=== PATIENT | female | born 1985 | race Caucasian/White ===

== ENCOUNTER 2017-03-29 09:51 | Emergency (ER) | payer MEDICAID, OTHER ==
[~2017-03-29] VITALS: Ht 160 cm; Wt 55.0 kg
[~2017-03-29 09:51] MED LIST: DICL50 PO; ROBA750T3 PO; TRAM50 PO
[2017-03-29 09:54] VITALS: BP 117/87; PULSE 85; RESP 18; TEMP 98.1; O2SAT 99
--- NOTE | 2017-03-29 09:57 | PD ---
Physical Exam Time Seen by Provider: 09:56 Narrative 31yo F c/o of something in her left eye last night. Reports eye pain and burning. Denies change in vision. Patient seen in triage. VS reviewed. Awaiting bed placement. Data Data Last Documented VS Vital Signs Date Time Temp Pulse Resp B/P Pulse Ox O2 Delivery O2 Flow Rate FiO2 03/29/17 09:54 98.1 85 18 117/87 99 Room Air MDM Supervised Visit with ZOILA: Clari Palomo Mar 29, 2017 09:57
[2017-03-29] MEDS ORDERED: TETRACAINE 0.5% OPTH SOLN 4 ML BTL LEFT EYE ONE (10:45)
[2017-03-29] MEDS ORDERED: FLUORESCEIN SOD 1 MG STRIP LEFT EYE ONE (11:00)
[2017-03-29] MEDS ORDERED: NORC5TAB PO (11:20)
[2017-03-29] MEDS ORDERED: ERYTOIN10 LEFT EYE (11:20)
[2017-03-29] MEDS ORDERED: KETO1SOL3 LEFT EYE (11:20)
--- NOTE | 2017-03-29 11:20 | PD ---
HPI . Left eye pain Chief Complaint: Eye Problems/Injury Time Seen by Provider: 10:41 Travel History International Travel<30 days: No Contact w/Intl Traveler<30days: No Traveled to known affect area: No History of Present Illness HPI Patient presents complaining with left eye pain. She believes that she inadvertently got some bird food in her left eye last night. Since complaining with a foreign body sensation, tearing and burning. Her pain is constant and she rates it as 8/10. She has tried flushing her eye prior to presentation with no relief. PFSH Past Medical History ?: Unknown : 1 Past Surgical History Appendectomy: Yes Social History Alcohol Use: Yes Tobacco Use: Yes Substance Use: No Allergies-Medications (Allergen,Severity, Reaction): Coded Allergies: No Known Allergies (Unverified , 03/29/17) Reported Meds & Prescriptions Reported Meds & Active Scripts Active Ultram (Tramadol HCl) 50 Mg Tab 50-100 Mg PO Q6 PRN FOR PAIN Robaxin-750 (Methocarbamol) 750 Mg Tab 1,500 Mg PO TID Voltaren (Diclofenac Sodium) 50 Mg Tabec 50 Mg PO TID Review of Systems Except as stated in HPI: all other systems reviewed are Neg Eyes: Positive: Drainage, Redness, Foreign Body Sensation, Pain, Tearing Physical Exam Narrative GENERAL: Awake and alert and in no acute distress. SKIN: Warm and dry. HEAD: Atraumatic. Normocephalic. EYES: Pupils equal and round. Extraocular movements are intact. She has conjunctival injection on the left. She has a visible foreign body at 9:00. Subsequent forcing staining showed a residual corneal abrasion. NECK: Trachea midline. CARDIOVASCULAR: Regular rate and rhythm. RESPIRATORY: No accessory muscle use. MUSCULOSKELETAL: No obvious deformities. No edema. NEUROLOGICAL: Awake and alert. No obvious cranial nerve deficits. Motor grossly within normal limits. Normal speech. PSYCHIATRIC: Appropriate mood and affect; insight and judgment normal. Data Data Last Documented VS Vital Signs Date Time Temp Pulse Resp B/P Pulse Ox O2 Delivery O2 Flow Rate FiO2 03/29/17 09:54 98.1 85 18 117/87 99 Room Air Orders Tetracaine 0.5% Opth Soln (Tetracaine 0. (03/29/17 10:45) Fluorescein Strip (Fiuop-A-Qgumhc A.T.) (03/29/17 11:00) [facility] Medical Decision Making Medical Screen Exam Complete: Yes Emergency Medical Condition: Yes Differential Diagnosis Differential diagnosis of eye pain includes but is not limited to conjunctivitis , chemical irritation, corneal abrasion, acute angle-closure glaucoma. Narrative Course Patient presents complaining with a foreign body sensation in her left eye. She was found to have a corneal foreign body. She has a resultant corneal abrasion. She will be treated with erythromycin ophthalmic ointment, Acular and Mathis. She should follow-up with an nurses' registry director if not completely back to normal by Sunday. Procedures Procedure Narrative Following appropriate and of the patient and location of the foreign body, the eye was anesthetized with tetracaine. The foreign body was then removed using a Q-tip. She tolerated the procedure well without complication. Diagnosis Primary Impression: Foreign body of left cornea Qualified Code: T15.02XA - Foreign body of left cornea, initial encounter Patient Instructions: Corneal Abrasion (DC), General Instructions Med/Other Pt SpecificInfo: Prescription(s) given Scripts Hydrocodone-Acetaminophen (Mathis)5-325 mg Tab1 Tab PO Q4H PRN (PAIN) #6 TAB Ref 0 Prov:Kylah Morin MD 03/29/17 Ketorolac Opth Drops (Acular Opth Drops)0.5% Drops1 Drop LEFT EYE QID #5 ML Ref 0 Prov:Kylah Morin MD 03/29/17 Erythromycin Opth Oint 5 Mg/Gm Oint1 Applic LEFT EYE BID 3 Days Ref 0 Prov:Kylah Morin MD 03/29/17 Disposition: 01 DISCHARGE HOME Condition: Stable Kylah Morin MD Mar 29, 2017 11:20
== END 2017-03-29 11:30 | disposition home or self-care (01) ==
LOC: NEPD 09:51
DX: T15.02XA Foreign body in cornea, left eye, initial encounter (principal); Z72.0 Tobacco use; X58.XXXA Exposure to other specified factors, initial encounter
CPT/HCPCS: 65220